=== PATIENT | female | born 1985 | race African-American/Black ===

== ENCOUNTER 2019-05-28 19:37 | Emergency (ER) | payer OTHER ==
[~2019-05-28] VITALS: Ht 165.1 cm; Wt 70.8 kg
[2019-05-28 20:11] VITALS: Ht 165.1 cm; Wt 70.8 kg
[2019-05-28 21:28] VITALS: BP 118/88
== END 2019-05-28 21:28 | disposition home or self-care (01) ==
LOC: ED 19:37
DX: L30.9 Dermatitis, unspecified (principal)

== ENCOUNTER 2019-07-20 10:04 | Emergency (ER) | payer OTHER ==
[~2019-07-20] VITALS: Ht 162.6 cm; Wt 69.4 kg
[2019-07-20 10:24] VITALS: BP 127/62; Ht 162.6 cm; Wt 69.4 kg
== END 2019-07-20 10:54 | disposition home or self-care (01) ==
LOC: ED 10:04
DX: K13.0 Diseases of lips (principal)